=== PATIENT | female | born 1985 | race Caucasian/White ===

== ENCOUNTER 2021-07-24 15:30 | Emergency (ER) | payer MEDICAID ==
[~2021-07-24] VITALS: Ht 165.1 cm; Wt 65.0 kg
[2021-07-24 15:40] VITALS: BP 123/69
[2021-07-25] MEDS ORDERED: NITR-87 MT (11:11)
== END 2021-07-24 23:41 | disposition left against medical advice (07) ==
LOC: ER 15:30
DX: Z53.21 Procedure and treatment not carried out due to patient leaving prior to being seen by health care provider (principal)

== ENCOUNTER 2021-07-25 08:29 | Emergency (ER) | payer MEDICAID ==
[~2021-07-25] VITALS: Ht 160 cm; Wt 67.0 kg
[2021-07-25] MEDS ORDERED: SODIUM CHLORIDE 0.9% 1,000 ML IV ONE (09:00)
[2021-07-25 09:21] LABS: BASOPHILS % 0.5 % (0.0-2.0); EOSINOPHILS % 2.1 % (0.0-5.0); HEMATOCRIT. 35.6 % (36.0-48.0); HEMOGLOBIN. 12.1 g/dL (12.0-16.0); LYMPHOCYTES % 34.1 % (20.0-50.0); MEAN CORPUSCULAR HEMOGLOBIN 27.3 pg (28.0-32.0); MEAN CORPUSCULAR VOLUME 80.7 fL (81.0-99.0); MEAN PLATELET VOLUME 6.6 fl (7.4-10.4); MONOCYTES % 6.6 % (2.0-8.0); NEUTROPHILS % 56.7 % (40.0-76.0); PLATELET 377 x1000/uL (130-400); RED BLOOD CELL COUNT 4.41 mill/uL (4.2-5.4); RED CELL DISTRIBUTION WIDTH 13.1 % (11.6-14.6)
[2021-07-25 09:23] LABS: CHLORIDE 105 mEq/L (98-107)
[2021-07-25 09:46] LABS: B-HCG QUANTITATIVE 47649 mIU/mL (<3)
[2021-07-25 11:03] LABS: CLARITY URINE CLOUDY (CLEAR); COLOR URINE YELLOW (YELLOW); KETONES URINE NEGATIVE (NEGATIVE); LEUKOCYTE ESTERASE URINE 3+ (NEGATIVE); NITRITE URINE POSITIVE (NEGATIVE); OCCULT BLOOD URINE 3+ (NEGATIVE); PH URINE 7.5 (4.5-8.0); PROTEIN URINE NEGATIVE (NEGATIVE); SPECIFIC GRAVITY URINE 1.008 (1.005-1.030); UROBILINOGEN URINE 0.2 E.U./dL (0.2-1.0)
[2021-07-25] MEDS ORDERED: NITR-87 MT (11:11)
[2021-07-25 13:15] VITALS: BP 112/77
== END 2021-07-25 13:24 | disposition home or self-care (01) ==
LOC: ER 08:29
DX: O20.0 Threatened abortion (principal); Z3A.08 8 weeks gestation of pregnancy
CPT/HCPCS: 36415; 76801; 76817; 80053; 81003; 81025; 84702; 85025; 86850; 86900; 86901; 99284; J7030

== ENCOUNTER 2021-09-27 20:09 | Emergency (ER) | payer MEDICAID ==
[~2021-09-27] VITALS: Ht 160 cm; Wt 68.0 kg
[~2021-09-27 20:09] MED LIST: NITR-87 MT
[2021-09-27 22:23] LABS: BASOPHILS % 0.3 % (0.0-2.0); EOSINOPHILS % 1.1 % (0.0-5.0); HEMATOCRIT. 36.2 % (36.0-48.0); HEMOGLOBIN. 12.5 g/dL (12.0-16.0); LYMPHOCYTES % 30.9 % (20.0-50.0); MEAN CORPUSCULAR HEMOGLOBIN 28.5 pg (28.0-32.0); MEAN CORPUSCULAR VOLUME 82.4 fL (81.0-99.0); MEAN PLATELET VOLUME 7.2 fl (7.4-10.4); MONOCYTES % 4.6 % (2.0-8.0); NEUTROPHILS % 63.1 % (40.0-76.0); PLATELET 298 x1000/uL (130-400); RED BLOOD CELL COUNT 4.39 mill/uL (4.2-5.4); RED CELL DISTRIBUTION WIDTH 15.7 % (11.6-14.6)
[2021-09-27 22:27] LABS: CHLORIDE 107 mEq/L (98-107)
[2021-09-27 22:52] LABS: B-HCG QUANTITATIVE 21159 mIU/mL (<3)
[2021-09-28 00:35] VITALS: BP 110/72
== END 2021-09-28 00:55 | disposition home or self-care (01) ==
LOC: ER 20:09
DX: O44.02 Complete placenta previa NOS or without hemorrhage, second trimester (principal); Z3A.16 16 weeks gestation of pregnancy
CPT/HCPCS: 36415; 76805; 80053; 81025; 84702; 85025; 86850; 86900; 99284